=== PATIENT | female | born 1985 | race Caucasian/White ===

== ENCOUNTER 2017-01-10 13:52 | Outpatient (CLI) | payer OTHER ==
--- NOTE | 2017-01-10 15:28 | DIAGNOSTIC IMAGING REPORT ---
PROCEDURE: US OB 1ST TRIMESTER W/TRANSVAG INDICATION: SIZE AND DATES TECHNIQUE: Mercado scale, color, and spectral Doppler transabdominal sonographic images of the first trimester gravid uterus were obtained. COMPARISON: None. FINDINGS: TRANSABDOMINAL SCANS: The gravid uterus is retroverted in position and contains a fundal gestational sac with a moderate residual response. No perigestational hemorrhage. The cervix is closed. There is a single intrauterine gestational sac that measures 7 mm, this corresponds to 5 weeks and 4 days, LAW 09/08/2017. A yolk sac was visible. pole not yet visualized. Maternal ovaries appear normal with a corpus luteum cyst visualized right ovary. No free pelvic fluid. IMPRESSION: 1. Single intrauterine gestational sac with gestational age of 5 weeks and 4 days and estimated due date of 09/08/2017 2. Closed cervix and no perigestational hemorrhage.
== END 2017-01-10 23:00 ==
LOC: US SRH 13:52
DX: Z34.91 Encounter for supervision of normal pregnancy, unspecified, first trimester (principal); Z3A.01 Less than 8 weeks gestation of pregnancy